=== PATIENT | female | born 2000 | race Caucasian/White ===

== ENCOUNTER 2020-12-04 01:15 | Emergency (ER) | payer OTHER ==
[~2020-12-04] VITALS: Ht 162.6 cm; Wt 65.3 kg
[2020-12-04 01:20] VITALS: BP 154/80
--- NOTE | 2020-12-04 01:23 | NUR ---
PT AMBULATED TO BED #3
--- NOTE | 2020-12-04 01:25 | NUR ---
COVERING PRIMARY RN FOR LUNCH RELIEF. SEE COMPLETE ASSESSMENT
[2020-12-04] MEDS ORDERED: BENZ-196 PO (01:52)
[2020-12-04] MEDS ORDERED: ALBU0.0912 INH (01:52)
[2020-12-04] MEDS ORDERED: ONDA-24 PO (01:54)
[2020-12-04 02:00] VITALS: BP 154/80
--- NOTE | 2020-12-04 02:00 | NUR ---
Patient discharged with v/s stable. Written and verbal after care instructions given and explained. Patient alert, oriented and verbalized understanding of instructions. Ambulatory with steady gait. All questions addressed prior to discharge. ID band removed. Patient advised to follow up with PMD. Rx of ALBUTEROL SULFATE, BENZONATE, ZOFRAN ODT given. Patient educated on indication of medication including possible reaction and side effects. Opportunity to ask questions provided and answered.
== END 2020-12-04 02:00 | disposition home or self-care (01) ==
LOC: MED 01:15
DX: J06.9 Acute upper respiratory infection, unspecified (principal)
CPT/HCPCS: 99283